=== PATIENT | male | born 1945 | race Caucasian/White ===

== ENCOUNTER 2019-07-10 14:52 | Outpatient (CLI) | payer MEDICARE ==
--- NOTE | 2019-07-10 15:33 | RAD ---
RADIOGRAPH CHEST 2 VIEWS: 07/10/19 HISTORY: 73-year-old male with dilated cardiomyopathy, I42.11. COMPARISON: 07/19/05. FINDINGS: The thoracic aorta is mildly tortuous and ectatic. There is no evidence of air space density, pneumo thorax, or pulmonary edema. There is no cardiomegaly or pleural effusion. There is a new left subcla vian dual lead pacemaker with lead tips overlying the expected locations of the right atrial appendag e and apex of right ventricle. There are skin maria c just superior to the generator indicating that the placement has been recent. Although the heart size is not enlarged, it is slightly larger than it was in 2005. The mild ectasia of the thoracic aorta is also greater than on the prior study. IMPRESSION: 1) No acute cardiopulmonary findings. 2) Mild ectasia of thoracic aorta. 3) New pacemaker without pneumothorax. yashira bonilla POS: [facility]
== END 2019-07-10 14:53 | disposition home or self-care (01) ==
LOC: RAD 14:52
PROVIDERS: ATTEND Internal Medicine Cardiovascular Disease
DX: I42.0 Dilated cardiomyopathy (principal); I77.810 Thoracic aortic ectasia; Z95.0 Presence of cardiac pacemaker
CPT/HCPCS: 71046

== ENCOUNTER 2019-11-08 18:53 | Inpatient (IN) | payer MEDICARE ==
[2019-11-08 19:17] LABS: #Eosinphils 0.3 thou/uL (0.0-0.7); #Lymphocytes 1.6 thou/uL (1.20-3.40); #Monocytes 0.9 thou/uL (0.11-0.59); #Neutrophils 8.5 thou/uL (1.40-6.50); %Basophils 0.3 % (0.0-1.0); %Eosinophils 2.9 % (0.0-10.0); %Monocytes 7.7 % (0.0-10.0); %Neutrophils 75.1 % (42.0-75.0); Hemoglobin 16.4 g/dL (14.0-18.0); Mean Corpuscular HGB CONC 33.5 g/dL (32.0-36.0); Mean Corpuscular Hemoglobin 30.8 pg (27.0-31.0); Mean Platelet Volume 11.6 fL (7.4-10.4); Platelet Count 138 thou/uL (130-400); RBC Distribution Width 14.6 % (11.5-14.5); Red Blood Cell (RBC) Count 5.32 mill/uL (4.70-6.10); White Blood Cell (WBC) Count 11.3 thou/uL (4.8-10.8)
[2019-11-08 19:38] LABS: Anion Gap 13 mmol/L (10-20); BUN (Urea Nitrogen) 28 mg/dL (8.4-25.7); Bilirubin, Total 0.3 mg/dL (0.2-1.2); Calc. Creatinine Clearance 0 mL/min (70-130); Calcium 8.9 mg/dL (7.8-10.44); Carbon Dioxide 24 mmol/L (23-31); Chloride 109 mmol/L (98-107); Estimated GFR-MDRD 52; Glucose 117 mg/dL (83-110); Potassium 4.1 mmol/L (3.5-5.1); Sodium 142 mmol/L (136-145)
[2019-11-08 19:39] LABS: ALT (SGPT) 11 U/L (8-55); AST (SGOT) 21 U/L (5-34); Albumin 3.5 g/dL (3.4-4.8); Alkaline Phosphatase 75 U/L (40-110); CK (CPK) 53 U/L (30-200); Globulin 2.7 g/dL (2.4-3.5); Protein, Total 6.2 g/dL (5.8-8.1)
--- NOTE | 2019-11-08 19:50 | CT ---
NONCONTRAST CT HEAD: 11/08/19 HISTORY: Level II stroke. Patient states things became out of focus today. Patient has hand and leg tingling. COMPARISON: None. FINDINGS: A few very tiny punctate low density foci are seen in the anterior aspect right basal ganglia likely related to tiny lacunar infarctions of indeterminate age. Also a small low density focus in the left thalamus also likely related to a very small lacunar infarction of indeterminate age. There is no ev idence of an acute cortical infarction, hemorrhage, mass effect or midline shift. Ventricular system is normal in size, shape and position. There is mild thickening in the rodriguez of the right maxillary antrum only partially imaged and may be sequela of chronic sinusitis. Mastoid air cells are clear. Calvarial structures have a normal appeara nce. IMPRESSION: 1. Age indeterminate punctate lacunar infarction right basal ganglia and left thalamus. No acute cortical infarction is seen. 2. No intraparenchymal or extra-axial hemorrhage. 3. Above findings discussed with Dr. Armstrong in the Emergency Department on 11/08/19 at 1914 [address]. POS: [facility]
[2019-11-08 19:58] LABS: CKMB 2.1 ng/mL (0-6.6)
[2019-11-08] MEDS ORDERED: Aspirin Chewable 81 MG TAB ONE (20:03)
[2019-11-08 21:00] LABS: Bacteria/HPF None Seen HPF (None Seen); Bilirubin Negative (Negative); Blood, Urine 1+ (Negative); Clarity Clear (Clear); Glucose, Urine (Dipstick) Normal (Negative); Leukocyte Negative Leu/uL (Negative); Nitrite Negative (Negative); Protein, Urine (Dipstick) Negative (Neg-Trace); RBC/HPF 0-3 HPF (0-3); Squamous Epithelial 0-3 HPF (0-3); Urobilinogen Normal mg/dL (Less than 2); WBC/HPF 0-3 HPF (0-3)
[2019-11-08 22:48] LABS: Troponin I 0.051 ng/mL (< 0.028)
--- NOTE | 2019-11-08 23:54 | PDOC.FPRHP ---
- History of Present Illness Chief Complaint: Dizziness History of Present Illness: Pt is a 73 yo male with PMH significant for heart failure w/ pacemaker, HLD who presented for dizziness. Episodes of been recurrent over the previous couple of months normally lasting a couple seconds to minute then remitting. During the episodes he becomes unfocused, lightheaded and denies any syncopal episodes. Today he had 2 episodes with the second lasting multiple minutes requiring him to lay down. When he woke from the nap he was back to his baseline. He has history of pacemaker placement [address] Laurent. At this time he states he lost consciousness due to low blood pressures. ED Course: In the ED he was found to have age indeterminate lacunar infarcts, no focal deficits. He had an indeterminate trop with downward trended to 0.051. Creatinine mildly elevated to 1.34. EKG ventricular paced. - Allergies/Adverse Reactions Allergies Allergy/AdvReac Type Severity Reaction Status Date / Time shellfish derived Allergy Intermediate Rash Verified 01/25/17 10:59 - Home Medications Medication Instructions Recorded Confirmed Type Atorvastatin Calcium [Lipitor] 10 mg PO DAILY 11/08/19 11/08/19 History Carvedilol [Coreg] 3.125 mg PO BID 11/08/19 11/08/19 History Sacubitril/Valsartan 49/51 1 tab PO DAILY 11/08/19 11/08/19 History [Entresto 49 mg-51 mg Tablet] - History PMHx: HLD, CHF w/ pacemaker, LBBB, PSHx: Pacemaker FHx: non-contributory Social: smokes 8-10 cigarettes per day for multiple years, denies drugs/alcohol - Review of Systems General: denies: fever/chills, weight/appetite/sleep changes ENT: denies: nasal congestion, rhinorrhea Respiratory: denies: cough, congestion, shortness of breath Cardiovascular: denies: chest pain, palpitation, edema Gastrointestinal: denies: nausea, vomiting, diarrhea, constipation Skin: denies: rashes, lesions Musculoskeletal: denies: pain, tenderness Neurological: denies: numbness, syncope Psychological: denies: anxiety, depression - Vital signs BP: 112/71 HR: 85 RR: 16 Tmax: 98.4 Pox: 96% on RA Wt: 71 kg - Physical Exam Constitutional: NAD, awake, alert and oriented Neck: supple, FROM, trachea midline Heart: RRR, normal S1/S2 Lungs: CTAB, no respiratory distress, good air movement Abdomen: soft, non-tender, bowel sounds present Neurological: no focal deficit, CN II-XII intact, normal sensation -Neurological: Dorsal column intact. Skin: no rash/lesions, capillary refill <2 seconds Heme/Lymphatic: no purpura, no petechia Psychiatric: good judgment and insight FMR H&P: Results - Labs Result Diagrams: 11/09/19 03:14 11/09/19 03:14 Lab results: WBC 11.3 thou/uL (4.8-10.8) H 11/08/19 19:07 Hgb 16.4 g/dL (14.0-18.0) 11/08/19 19:07 Hct 48.9 % (42.0-52.0) 11/08/19 19:07 MCV 92.0 fL (78.0-98.0) 11/08/19 19:07 Plt Count 138 thou/uL (130-400) 11/08/19 19:07 Neutrophils % 75.1 % (42.0-75.0) H 11/08/19 19:07 Sodium 142 mmol/L (136-145) 11/08/19 19:07 Potassium 4.1 mmol/L (3.5-5.1) 11/08/19 19:07 Chloride 109 mmol/L (98-107) H 11/08/19 19:07 Carbon Dioxide 24 mmol/L (23-31) 11/08/19 19:07 BUN 28 mg/dL (8.4-25.7) H 11/08/19 19:07 Creatinine 1.34 mg/dL (0.7-1.3) H 11/08/19 19:07 Glucose 117 mg/dL (83-110) H 11/08/19 19:07 Calcium 8.9 mg/dL (7.8-10.44) 11/08/19 19:07 Total Bilirubin 0.3 mg/dL (0.2-1.2) 11/08/19 19:07 AST 21 U/L (5-34) 11/08/19 19:07 ALT 11 U/L (8-55) 11/08/19 19:07 Alkaline Phosphatase 75 U/L (40-110) 11/08/19 19:07 Creatine Kinase 53 U/L (30-200) 11/08/19 19:07 CK-MB (CK-2) 2.1 ng/mL (0-6.6) 11/08/19 19:07 Serum Total Protein 6.2 g/dL (5.8-8.1) 11/08/19 19:07 Albumin 3.5 g/dL (3.4-4.8) 11/08/19 19:07 Urine Ketones Negative mg/dL (Negative) 11/08/19 20:49 Urine Blood 1+ (Negative) A 11/08/19 20:49 Urine Nitrite Negative (Negative) 11/08/19 20:49 Ur Leukocyte Esterase Negative Lonny/uL (Negative) 11/08/19 20:49 Urine RBC 0-3 HPF (0-3) 11/08/19 20:49 Urine WBC 0-3 HPF (0-3) 11/08/19 20:49 Ur Squamous Epith Cells 0-3 HPF (0-3) 11/08/19 20:49 Urine Bacteria None Seen HPF (None Seen) 11/08/19 20:49 - EKG Interpretation EKG: Ventricular pacing - Radiology Interpretation CT scan - head Status: report reviewed by me (Age indeterminate lacunar infarcts) FMR H&P: A/P - Problem List (1) Lightheadedness Current Visit: Yes Status: Acute Code(s): R42 - DIZZINESS AND GIDDINESS (2) Heart failure Current Visit: Yes Status: Acute Code(s): I50.9 - HEART FAILURE, UNSPECIFIED (3) Hyperlipidemia Current Visit: Yes Status: Acute Code(s): E78.5 - HYPERLIPIDEMIA, UNSPECIFIED (4) LBBB (left bundle branch block) Current Visit: Yes Status: Acute Code(s): I44.7 - LEFT BUNDLE-BRANCH BLOCK, UNSPECIFIED - Plan Pt is a 73 yo male here for work up of lightheadedness # Lightheadedness Etiology possibly secondary to acute stroke. Will workup to rule out. - MRI pending - CTA head/neck pending - Echo pending - Asp 81 mg - Lipid panel - neuro checks # Elevated Creatinine Baseline in 2017 1.20. Could be pt's new baseline, also possibly secondary to dehydration with BUN:Crea ratio at 20. Encourage PO intake. # HLD - Increased atorvstatin to 40 mg daily # CHF - continue home meds # Hx of LBBB Fluids: PO Diet: HH VTE: Lovenox Code: Full Dispo: > 48 hours FMR H&P: Upper Level - Plan Date/Time: 11/08/19 9018 I, Clayton Rojas MD, have evaluated this patient and agree with findings/plan as outlined by academic intern resident. Pertinent changes/additions are listed here. Sandra Alfaro is a 73 year old M with a PMH of HTN, HLD, CHF (states last echo had EF of 40-45%) with pacemaker who presented to the ED with a several week history of dizziness. Symptoms worsened day of admission and he had several episodes of dizziness while reading accompanied by right lower leg numbness which prompted him to come to ED. States that he has never had symptoms like this before. Described dizziness had blurriness in vision and mind feeling cloudy. Denies vertigo or presyncope. In the ED, vitals were stable and wnl. Trop was 0.068, Cr was 1.34. EKG showed V pacing. CT brain showed age indeterminant punctate lacunar infarct in left basal ganglia and right thalamus. No acute infarct. Physical exam did not show any focal deficits, CN II-XII intact, equal strength bilaterally. No dysdiadochokinesis, normal finger to nose and heal to nguyen. Admitting to stroke for CVA r/o and cardiac work up due to elevated troponin at 0.068. Patient given aspirin in ED. Ordered Brain MRI and CTA head and neck. Ordered Echo. Trend troponins. Continue home medications for chronic medical conditions. Anticipate hospital d /c >48 hours. Please see academic intern note above for full H&P, which I have reviewed and agree with.
[2019-11-09 01:33] LABS: Troponin I 0.031 ng/mL (< 0.028)
[2019-11-09 03:39] LABS: #Basophils 0.1 thou/uL (0.0-0.2); #Eosinphils 0.4 thou/uL (0.0-0.7); #Lymphocytes 1.9 thou/uL (1.20-3.40); #Monocytes 0.7 thou/uL (0.11-0.59); #Neutrophils 5.4 thou/uL (1.40-6.50); %Basophils 0.7 % (0.0-1.0); %Eosinophils 4.5 % (0.0-10.0); %Lymphocytes 22.6 % (21.0-51.0); %Monocytes 8.1 % (0.0-10.0); %Neutrophils 64.2 % (42.0-75.0); Hemoglobin 14.5 g/dL (14.0-18.0); Mean Corpuscular HGB CONC 32.9 g/dL (32.0-36.0); Mean Corpuscular Hemoglobin 30.1 pg (27.0-31.0); Mean Corpuscular Volume 91.6 fL (78.0-98.0); Mean Platelet Volume 10.3 fL (7.4-10.4); Platelet Count 115 thou/uL (130-400); Platelet Morphology Comment Appears Decreased; RBC Distribution Width 14.5 % (11.5-14.5); Red Blood Cell (RBC) Count 4.83 mill/uL (4.70-6.10); White Blood Cell (WBC) Count 8.4 thou/uL (4.8-10.8)
[2019-11-09 03:43] LABS: Anion Gap 8 mmol/L (10-20); BUN (Urea Nitrogen) 29 mg/dL (8.4-25.7); Calc. Creatinine Clearance 0 mL/min (70-130); Calcium 8.4 mg/dL (7.8-10.44); Carbon Dioxide 28 mmol/L (23-31); Cardiac Risk 3.7 (Less than 4.5); Chloride 108 mmol/L (98-107); Cholesterol 137 mg/dl (< 200 Desired); Estimated GFR-MDRD 54; Glucose 93 mg/dL (83-110); HDL Cholesterol 37 mg/dL (>60 Neg Risk); LDL Cholesterol, Calculated 81 mg/dL; Potassium 4.1 mmol/L (3.5-5.1); Sodium 140 mmol/L (136-145); Triglycerides 96 mg/dL (Less than 150)
--- NOTE | 2019-11-09 05:17 | PDOC.FM ---
- Subjective Subjective: Patient doing well this morning. Denies any motor or sensory deficits. Denies any new episodes of lightheadedness overnight. Upon discussion with patient, he states that most of the time when he experiences the lightheadedness, it is when he is getting out of a chair or when he is active. Discussed that we are going to pursue orthostatic vitals and additional imaging. Patient agreeable with plan of care. - Objective MAR Reviewed: Yes Result Diagrams: 11/09/19 03:14 11/09/19 03:14 Phys Exam - Physical Examination Constitutional: NAD HEENT: moist MMs, sclera anicteric Neck: supple, full ROM Respiratory: no wheezing, clear to auscultation bilateral Cardiovascular: RRR, no significant murmur Gastrointestinal: soft, non-tender Musculoskeletal: no edema, pulses present Neurological: non-focal, moves all 4 limbs Lymphatic: no nodes Psychiatric: normal affect, A&O x 3 Skin: no rash, normal turgor Dx/Plan (1) Dizziness of unknown cause Code(s): R42 - DIZZINESS AND GIDDINESS Status: Acute (2) Heart failure Code(s): I50.9 - HEART FAILURE, UNSPECIFIED Status: Chronic (3) Hyperlipidemia Code(s): E78.5 - HYPERLIPIDEMIA, UNSPECIFIED Status: Chronic (4) LBBB (left bundle branch block) Code(s): I44.7 - LEFT BUNDLE-BRANCH BLOCK, UNSPECIFIED Status: Chronic (5) Lightheadedness Code(s): R42 - DIZZINESS AND GIDDINESS Status: Acute - Plan Plan: Patient is a 73F with PMHx of CHF w pacemaker, HTN, CAD, HLD, admitted for stroke r/o #Lightheadedness #Dizziness Unclear Etiology, possibly secondary to acute stroke vs orthostatic hypotension - CT in ED: age indeterminate punctate lacunar infarct right basal ganglia and left thalamus. No acute cortical infarction - MRI pending - CTA head/neck pending - Echo pending - Asp 81 mg - Lipid panel: triglycerides 96, total chol 137, LDL 81, HDL 37 - neuro checks - orthostatic vitals pending # Elevated Creatinine Baseline in 2017 1.20. -1.34 on admission, 1.30 this am -continue to encourage PO hydration #Elevated troponin -uncertain etiology, downtrended x3 0.068>0.051>0.031 # HLD -40mg atorvastatin daily # CHF - continue home meds # Hx of LBBB Fluids: PO Diet: HH VTE: Lovenox Code: Full Dispo: admitted for stroke workup including CTA head/neck and MRI, orthostatic vitals Addendum - Attending - Attending Attestation Date/Time: 11/09/19 1021 I personally evaluated the patient and discussed the management with Dr. Souza. I agree with the History, Examination, Assessment and Plan documented above with any addition or exceptions noted below. Checking to see if pt has mri-compatible pacemaker. Getting echo, orthostatic vital signs.
--- NOTE | 2019-11-09 08:11 | PDOC.BPN ---
- Brief Progress Note Date/Time: 11/09/19 3911 I personally evaluated the patient and discussed the management with Dr. Carroll last night. H&P is pending. I agree with the History, Examination, Assessment and Plan as discussed. Cardiac vs vascular vs neurogenic cause of dizziness.
--- NOTE | 2019-11-09 08:18 | CT ---
PRELIMINARY REPORT/[facility]/EMERGENCY AFTER HOURS PROCEDURE: Addendum: Impression #4: Unremarkable CTA of the neck. Addendum electronically signed by Jarod Rangel M.D. on November 09, 2019 4:11:07 AM [address] MATCHER EXAMINATION CT head without contrast. CTA Head With Intravenous Contrast HISTORY ER4; M73 presents to ED with c/o lightheaded, near syncope, pain in the back of neck/head, numbness t o legs and hand beginning yesterday at 12. Pt reports he smokes/drinks. TECHNIQUE Axial CT images of the head without IV contrast. Axial reconstructions in bone and soft tissue algor ithm provided. Axial CTA images of the head with intravenous contrast. MIP reconstructed images were created and rev iewed. CONTRAST With; ISO 370MG, 70ML COMPARISON None provided. FINDINGS: INTERNAL CAROTID ARTERIES The intracranial ICAs are patent with no significant stenosis. No occlusion. No aneurysm. ANTERIOR CEREBRAL ARTERIES No significant stenosis. No occlusion. No aneurysm. MIDDLE CEREBRAL ARTERIES No significant stenosis. No occlusion. No aneurysm. POSTERIOR CEREBRAL ARTERIES No significant stenosis. No occlusion. No aneurysm. BASILAR ARTERY No significant stenosis. No occlusion. No aneurysm. VERTEBRAL ARTERIES No significant stenosis. No occlusion. No aneurysm. SOFT TISSUES: No acute finding. No masses or lymphadenopathy. BONES: No acute osseous abnormality. Multilevel degenerative changes of the cervical spine. MISCELLANEOUS Complete opacification of the right maxillary sinus with mucoperiosteal thickening. IMPRESSION: 1. No acute intracranial abnormality. MRI is most sensitive for detection of acute ischemic stroke. 2. Unremarkable CTA of the head. 3. Right maxillary chronic sinusitis. ELECTRONICALLY SIGNED BY: Jarod Rangel M.D. Nov 09, 2019 3:32:06 AM SHADE MATCHER FINAL REPORT: NONCONTRAST HEAD CT CT ANGIOGRAM OF THE HEAD CT ANGIOGRAM OF THE NECK: HISTORY: Presyncope. Lightheadedness. TECHNIQUE: Noncontrast head CT is performed in the axial plane. CT angiogram the head and neck performed in axia l plane. Three-dimensional reformatted images are submitted for dictation. FINDINGS: NONCONTRAST HEAD CT: No acute intracranial process. There is opacification of the right maxillary sinus. CT ANGIOGRAM OF THE HEAD AND NECK: No significant stenosis based upon NASCET criteria with regards the cervical, carotid, and vertebral arteries. No significant stenosis at the level [place]. IMPRESSION: This report is in agreement with initial report by [facility]. Unremarkable CT angiogram of hea d and neck. Right maxillary sinus disease. Transcribed Date/Time: 11/09/2019 8:53 AM
[2019-11-09] MEDS ORDERED: Sacubitril 49 MG/Valsartan 51 MG TABLET PO SCH (09:00)
[2019-11-09] MEDS ORDERED: Enoxaparin Sodium 40 MG/0.4 ML SYRINGE SC SCH (09:00)
[2019-11-09] MEDS ORDERED: Carvedilol 3.125 MG TAB PO SCH (09:00)
[2019-11-09] MEDS ORDERED: Aspirin 81 mg Enteric Coated Tablet PO SCH (09:00)
[2019-11-09 11:45] VITALS: TEMP 97.6; BMI 27.3
--- NOTE | 2019-11-09 16:12 | MRI ---
Exam: Brain MRI with and without contrast HISTORY: Hand and leg tingling. Evaluate for stroke COMPARISON: None FINDINGS: Gradient echo sequence: No hemorrhage Calvarium: Appropriate T1 marrow signal intensity Midline brain parenchyma: Unremarkable Cerebrum:No parenchymal mass, mass effect or midline shift. Age-appropriate atrophy. Cortical mulligan-wh ite matter differentiation is preserved. White matter: Minimal scattered T2 and FLAIR white matter hyperintensities, likely due to chronic sma ll vessel ischemic change Ventricles: No evidence of hydrocephalus. Sinuses and mastoid air cells: Right maxillary sinus opacification. Minimal opacification of the infe rior left mastoid air cells. Diffusion: Central arterial flow is maintained. Absent restricted diffusion. Postcontrast images: No pathologic enhancement of the brain parenchyma. IMPRESSION: 1. Absent restricted diffusion. No acute infarct 2. Minimal chronic small vessel ischemic changes white matter. 3. No pathologic enhancement of the brain parenchyma.
[2019-11-09 17:58] VITALS: BP 140/76
[2019-11-09] MEDS ORDERED: Atorvastatin Calcium 40 MG TAB PO SCH (21:00)
--- NOTE | 2019-11-12 02:10 | PQF ---
TRACEY JO GABRIEL A MD [id number] PRISCILLA BLANCAS [id number] CLINICAL DOCUMENTATION CLARIFICATION FORM: POST DISCHARGE Addendum to original discharge summary date: ____ Late entry note date: __ DATE: 11/12/19 ATTN: Randall Escobedo Please exercise your independent, professional judgment in responding to the clarification form. Clinical indicators are provided on the bottom of this form for your review In your clinical opinion based on clinical findings below, can you please identify the etiology of Lightheadness if due to: Please check appropriate box(s): [ ] Orthostatic Hypotension [ ] Acute CVA [ ] Other diagnosis [ ] Unable to determine In addition, please specify: Present on Admission (POA): [ ] Yes [ ] No [ ] Unable to determine For continuity of documentation, please document condition throughout progress notes and discharge summary. Thank You. CLINICAL INDICATORS - SIGNS / SYMPTOMS / LABS Family Medicine H&P p1 11/08 Dr Carroll Presented with Dizziness Family Medicine H&P p1 11/08 Dr CarrollEpisodes of been recurrent over the previous couple of months normally lasting a couple seconds to minute then remitting. During the episodes he becomes unfocused, lightheaded aid denies any syncopal episodes. Family Medicine H&P p1 11/08 Dr Carrolltoday he had 2 episodes with the second lasting multiple minutes requiring him to lay down. When he woke from the nap he was back to his baseline. Family Medicine H&P p1 11/08 Dr CarrollAt this time he states he lost consciousness due to low blood pressures. Family Medicine H&P p1 11/08 Dr CarrollIn the ED he was found to have age indeterminate lacunar infarcts, no focal deficits. Family Medicine H&P p4 11/08 Dr Carroll Lightheadedness possibly secondary to acute stroke Family Medicine PN p2 11/09 Dr Carroll Unclear etiology, possibly secondary to acute stroke vs orthostatic hypotension RISK FACTORS [facility] H&P p1 11/08 - 73 year-old, Male [facility] H&P p1 11/08 - PMHX significant for Heart failure with pacemaker TREATMENTS: [facility] H&P p4 11/08 Ordered Brain MRI [facility] H&P p4 11/08 Aspirin 81mg [facility] H&P p4 11/08 Neuro Check [facility] H&P p4 11/08 Orthostatic vitals check (This form is maintained as a part of the permanent medical record) 2014 [employer]. All Rights Reserved [email or web address] [email or web address] [not provided] MTDD
--- NOTE | 2019-11-12 09:24 | DIS ---
DATE OF ADMISSION: 11/08/2019 DATE OF DISCHARGE: 11/09/2019 ADMITTING RESIDENT: Edgar Carroll DO ADMITTING ATTENDING: Randall Sorto MD DISCHARGE RESIDENT: Natalie Souza MD DISCHARGE ATTENDING: Silvia Vasquez MD CONSULTS: OT and PT. PROCEDURES: None. IMAGIN. Brain CT: Age-indeterminate punctate lacunar infarction of right basal ganglia and left thalamus. No acute cortical infarction is seen. No intraparenchymal or extra-axial hemorrhage. 2. CT [place] angio with contrast: No acute intracranial abnormality. MRI is more sensitive for detection of acute ischemic stroke. Unremarkable CTA of the head. Right maxillary chronic sinusitis. 3. Brain MRI: Absent restricted diffusion. No acute infarct. Minimal chronic small-vessel ischemic changes of white matter. No pathologic enhancement of the brain parenchyma. 4. Echocardiogram: Technically difficult study with poor endocardial definition. EF difficult to assess. Appears moderately depressed. Hypokinetic motion of the inferior wall noted in the left ventricle. Diastolic function could not be assessed. Mild mitral regurgitation is present. Mior-bs-tnmqer[place] aortic regurgitation is noted. Mild tricuspid regurgitation. Normal pulmonary artery pressure. PRIMARY DIAGNOSES: Dizziness versus transient ischemic attack, elevated creatinine, elevated troponin. SECONDARY DIAGNOSES: Hyperlipidemia, congestive heart failure, history of left bundle-branch block. DISCHARGE MEDICATIONS: 1. 81 mg aspirin. 2. 40 mg atorvastatin. 3. 3.125 mg carvedilol p.o. b.i.d. 4. One tablet Entresto p.o. daily. Discontinued medications, Lovenox. HISTORY OF PRESENT ILLNESS/HOSPITAL COURSE: The patient is a 73-year-old male with a history of heart failure with pacemaker, hyperlipidemia, who presented with dizziness that has been recurrent over the last several months. He reported that he would become visually unfocused and lightheaded, though he denied any syncopal episodes. He did have one episode on the day of admission that required him to lay down because it lasted several minutes, which resolved after a nap. He had a pacemaker placed [address] Moulton. Patient was admitted to the stroke alert floor and was observed on telemetry. His lightheadedness was worked up with orthostatic vitals that were normal, and MRI that was negative for an acute CVA, and echo that was difficult to discern whether the patient had any other heart failure exacerbations, though the patient did not present fluid overloaded, a lipid panel that came back normal, and a CTA head and neck, imaging above. He also came in with a creatinine that was slightly elevated at 1.34, though we did not have any recent labs to know if this was elevated or improved or at baseline and with fluids, his creatinine only came down slightly to 1.3, so the patient likely has underlying kidney dysfunction. The patient also did have an elevated troponin of 0.068 when he was admitted and the troponins were trended. Trops trended downward and finally ending at 0.031. The patient had not endorsed any chest pain throughout his hospitalization. As the patient was found to not have an acute stroke and he has not had any episodes of lightheadedness or dizziness during the hospitalization, he was evaluated on the day of discharge and found to be in stable condition. The plan of discharge was discussed with the patient, who was agreeable and he was agreeable to follow up with his primary care physician on an outpatient basis. DISPOSITION: Stable. DISCHARGE INSTRUCTIONS: 1. Location: Home. 2. Diet: Heart healthy. 3. Activity: As tolerated. 4. Follow up with his primary care provider within [address] Moulton within 14 days. Job ID: [id number] MTDD
== END 2019-11-09 19:12 | disposition home or self-care (01) | DRG 69 ==
LOC: ERS 18:53 → ERHOLD 20:59 → 2SE 11-09 11:28
PROVIDERS: ADMIT Family Medicine; ATTEND Family Medicine
DX: G45.9 Transient cerebral ischemic attack, unspecified (principal); R42 Dizziness and giddiness; E78.5 Hyperlipidemia, unspecified; I44.7 Left bundle-branch block, unspecified; I50.9 Heart failure, unspecified; I11.0 Hypertensive heart disease with heart failure; Z95.0 Presence of cardiac pacemaker; Z79.899 Other long term (current) drug therapy
CPT/HCPCS: 36415; 36416; 70450; 70496; 70498; 70553; 80048; 80053; 80061; 81003; 81015; 82550; 82553; 84484; 85025; 93005; 93306; 96360; J1650

== ENCOUNTER 2021-03-23 14:04 | Outpatient (CLI) | payer MEDICARE ==
[2021-03-23 16:23] LABS: Anion Gap 16 mmol/L (10-20); BUN (Urea Nitrogen) 23 mg/dL (8.4-25.7); Calc. Creatinine Clearance 0 mL/min (70-130); Carbon Dioxide 21 mmol/L (23-31); Chloride 107 mmol/L (98-107); Glucose 91 mg/dL (83-110); Potassium 4.6 mmol/L (3.5-5.1); Sodium 139 mmol/L (136-145)
[2021-03-23 16:25] LABS: Hemoglobin 17.3 g/dL (13.5-17.5)
[2021-03-24 01:31] LABS: SARS-CoV-2 PCR by NAA Not Detected (NotDetected)
== END 2021-03-23 14:05 | disposition home or self-care (01) ==
LOC: LABBT 14:04
PROVIDERS: ATTEND Specialist
DX: Z01.818 Encounter for other preprocedural examination (principal); C44.219 Basal cell carcinoma of skin of left ear and external auricular canal; H93.8X9 Other specified disorders of ear, unspecified ear; Z20.822 Contact with and (suspected) exposure to COVID-19
CPT/HCPCS: 80048; 85014; 85018; U0003; U0005; 87635; 93005; 93010

== ENCOUNTER 2021-03-26 07:50 | Day surgery (SDC) | payer MEDICARE ==
[2021-03-25 11:18] VITALS: BMI 27.2
[2021-03-26] MEDS ORDERED: Lidocaine 1% w/Epinephrine 1:100K 20 ML VIAL ONE (09:54)
[2021-03-26] MEDS ORDERED: Bacitracin Zinc Ointment 30 gm TUBE ONE (09:54)
[2021-03-26] MEDS ORDERED: Fentanyl 100 MCG/2 ML VIAL ONE (10:31)
[2021-03-26] MEDS ORDERED: PROPOFOL 200 MG/20 ML VIAL ONE (10:40)
[2021-03-26] MEDS ORDERED: PHENYLEPHRINE-NS 100 MCG/ML 10 ML SYRINGE ONE (10:40)
[2021-03-26] MEDS ORDERED: Lidocaine 1% PF 5 ML VIAL ONE (10:40)
[2021-03-26] MEDS ORDERED: Ondansetron PF 4 MG/2 ML Vial ONE (10:40)
[2021-03-26] MEDS ORDERED: Meperidine HCl/PF 25 MG/ML VIAL ONE (11:53)
== END 2021-03-26 13:05 | disposition home or self-care (01) ==
LOC: SDC 07:50
PROVIDERS: ATTEND Specialist
PROC: 0HB3XZZ Excision of Left Ear Skin, External Approach (ICD-10-PCS; principal; 2021-03-26)
DX: C44.219 Basal cell carcinoma of skin of left ear and external auricular canal (principal); F17.290 Nicotine dependence, other tobacco product, uncomplicated; Z79.82 Long term (current) use of aspirin; Z79.899 Other long term (current) drug therapy; Z91.013 Allergy to seafood; Z95.0 Presence of cardiac pacemaker
CPT/HCPCS: 88305; 88331; 88332; J2175; J2405; J2704; J3010